=== PATIENT | female | born 1930 | race Caucasian/White ===

== ENCOUNTER 2017-09-10 11:52 | Emergency (ER) | payer MEDICARE ==
[2017-09-10] MEDS ORDERED: Morphine Sulfate 2 MG/ML SYRINGE ONE (12:47)
[2017-09-10 13:06] LABS: Bilirubin Negative (Negative); Blood, Urine Negative (Negative); Glucose, Urine (Dipstick) Negative (Negative); Ketone, Urine Negative (Negative); Nitrite Negative (Negative); Protein, Urine (Dipstick) Negative (Neg-Trace); Urobilinogen 0.2 mg/dL (0.2-1.0)
[2017-09-10 13:12] LABS: #Basophils 0.2 thou/uL (0.0-0.2); #Eosinphils 0.3 thou/uL (0.0-0.7); #Lymphocytes 2.6 thou/uL (1.20-3.40); #Monocytes 0.8 thou/uL (0.11-0.59); #Neutrophils 6.1 thou/uL (1.40-6.50); %Basophils 1.6 % (0.0-1.0); %Eosinophils 3.2 % (0.0-10.0); %Lymphocytes 25.9 % (21.0-51.0); %Monocytes 8.2 % (0.0-10.0); Hematocrit 42.8 % (36.0-47.0)
[2017-09-10 13:20] LABS: Lactic Acid - Sepsis 2.3 mmol/L (0.5-2.2)
[2017-09-10 13:22] LABS: Bacteria/HPF 4+ HPF (None Seen); RBC/HPF 0-3 HPF (0-3); Squamous Epithelial 0-3 HPF (0-3)
[2017-09-10 13:24] LABS: ALT (SGPT) 31 U/L (8-55); AST (SGOT) 36 U/L (5-34); Alkaline Phosphatase 95 U/L (40-150); Anion Gap 17 mmol/L (10-20); BUN (Urea Nitrogen) 27 mg/dL (9.8-20.1); Bilirubin, Total 0.8 mg/dL (0.2-1.2); Calc. Creatinine Clearance 0 mL/min (70-130); Calcium 9.5 mg/dL (7.8-10.44); Carbon Dioxide 19 mmol/L (23-31); Chloride 106 mmol/L (98-107); Estimated GFR-MDRD 42; Globulin 4.5 g/dL (2.4-3.5); Lipase 24 U/L (8-78); Protein, Total 8.4 g/dL (6.0-8.3)
[2017-09-10] MEDS ORDERED: cefTRIAXone\\ROCEPHIN 1 GM VIAL ONE (14:15)
--- NOTE | 2017-09-10 14:20 | CT ---
CT ABDOMEN AND PELVIS WITHOUT CONTRAST: HISTORY: Right flank pain. TECHNIQUE: Multiple axial tomograms obtained through the abdomen and pelvis without IV enhancement. FINDINGS: The lung bases are clear. The liver, spleen, and pancreas are unremarkable. The adrenal glands are normal. There is no evidence of hydronephrosis. There is no evidence of a urinary tract calculus. The uret ers are normal in caliber. There are two adjacent cysts arising from the superior pole of the left kidney, each measuring appro ximately 1.5 cm. There is a 2 cm cyst, posterior mid right kidney. The aorta is calcified but of normal caliber. Small bowel loops appear of normal caliber. There is questionable mural thickening in the cecum. A mucosal lesion at the cecum is not excluded on this study. There is diverticulosis of the left colon and sigmoid colon. No definite evidence o f diverticulitis. The uterus is deviated to the left and appears unremarkable. Degenerative changes in the spine are prominent. IMPRESSION: 1. No evidence of urinary tract calculus or obstruction. 2. Renal cystic lesions, as described above. 3. Left colon and sigmoid diverticulosis without definite evidence of diverticulitis by CT. 4. Question mural thickening in the cecum. This may relate to nondistention; however, suggestive e lective colonoscopy or barium enema. POS: [facility]
[2017-09-10 15:11] LABS: Lactic Acid - Sepsis 2.1 mmol/L (0.5-2.2)
== END 2017-09-10 16:16 | disposition home or self-care (01) ==
LOC: SCSER 11:52
DX: N39.0 Urinary tract infection, site not specified (principal); E11.9 Type 2 diabetes mellitus without complications; E78.5 Hyperlipidemia, unspecified; I10 Essential (primary) hypertension; Z79.899 Other long term (current) drug therapy
CPT/HCPCS: 36415; 74176; 80053; 81003; 81015; 83605; 83690; 85025; 87040; 87077; 87086; 87186; 96361; 96365; 96372; J0696; J1956; J2270

== ENCOUNTER 2018-07-11 15:51 | Observation (INO) | payer MEDICARE ==
[2018-07-11] MEDS ORDERED: Dextrose 50% Abboject 50 ML SYRINGE SLOW IVP PRN (20:05)
[2018-07-11] MEDS ORDERED: Insulin Regular 300 UNITS/3 ML VIAL SC PRN (20:05)
[2018-07-11] MEDS ORDERED: Dextrose 5% in Water 1,000 ML IV PRN (20:05)
[2018-07-11] MEDS ORDERED: traMADol HCl 50 MG TAB PO PRN (20:05)
[2018-07-11] MEDS ORDERED: Acetaminophen 500 MG TAB PO SCH (20:15)
[2018-07-11] MEDS ORDERED: Gabapentin 100 MG CAP PO SCH (21:00)
[2018-07-11 22:28] VITALS: BMI 28.7
[2018-07-11] MEDS ORDERED: Gabapentin 300 MG CAP PO SCH (23:00)
[2018-07-11] MEDS ORDERED: Amlodipine 5 MG TAB PO SCH (23:00)
--- NOTE | 2018-07-11 23:24 | HP ---
DATE OF ADMISSION: 07/11/2018 ADMITTING PHYSICIAN: Murphy Eason MD HISTORY OF PRESENT ILLNESS: Ms. Bautista is an 87-year-old female, who reports that she was ambulating to her bedside commode and when she went to reach down to sit on her bedside commode, she fell onto the floor landing on the coffee table. She was able to get herself up and ambulate back to her bed. She woke up this morning having pain in her anterior chest. She was taken to [facility] in [place], where a CT scan identified a sternal fracture. She was then transferred t [facility] Emergency Department for a higher level of care. She reports that pain is well controll ed unless she is moving. She denies chest pain, syncope, shortness of breath, or any other pain. PAST MEDICAL HISTORY: 1. Diabetes type 2. 2. Hyperlipidemia. 3. High cholesterol. 4. Hypertension. PAST SURGICAL HISTORY: 1. Hernia repair x2. 2. Cholecystectomy. 3. Hysterectomy. 4. Left foot surgery. SOCIAL HISTORY: The patient lives alone in her home, very near to her [id number]. Alcohol, non e. Tobacco, none. Drugs, none. CURRENT MEDICATIONS: 1. Lisinopril 20 mg once daily. 2. Pravastatin 20 mg once daily. 3. Amlodipine 5 mg once daily. ALLERGIES: 1. CODEINE. 2. PENICILLIN. 3. SULFA. 4. TERRAMYCIN. DIAGNOSTIC IMAGING: CT scan shows nondisplaced upper sternal fracture without complication. LABORATORY STUDIES: CBC: WBC 8.1, RBC 4.02, hemoglobin 12.8, hematocrit 38, platelets 168. Coagula tion: PT 13.2, INR 1. Chemistry: Sodium 142, potassium 3.9, chloride 107, carbon dioxide 24, BUN 2 2, creatinine 1.13, glucose 140. REVIEW OF SYSTEMS: Constitutional: The patient denies chills, fever, recent weight loss, or general ized malaise. HEENT: Denies otorrhea, rhinorrhea, neck pain, or sore throat. Cardiovascular: Juan es chest pain, palpitations, or syncope. Respiratory: Denies cough, wheezing, or shortness of breat h. Gastrointestinal: Denies abdominal pain, constipation, diarrhea, nausea, or vomiting. Genitouri nary: Denies dysuria, hematuria, or frequency. Musculoskeletal: Reports fall. Reports anterior ch est pain. Skin: Denies rashes or skin changes. Neurologic: Denies dizziness, headache, focal weak ness, or sensory changes. Heme/Lymphatic: Denies abnormal bleeding. PHYSICAL EXAMINATION: VITAL SIGNS: Blood pressure 170/91, pulse 79, respirations 16, O2 sat 99%. CONSTITUTIONAL: Elderly female lying in bed in no acute distress, nontoxic appearing. HEENT: Atraumatic, normocephalic. NECK: Without tenderness. Trachea midline. RESPIRATORY: Bilateral breath sounds clear. Chest movement symmetrical. CARDIOVASCULAR: Regular rate and rhythm. Heart sounds normal. ABDOMEN: Soft, nontender, nondistended. PELVIS: Stable. BACK: Normal range of motion. Normal inspection. EXTREMITIES: Moves all extremities well. Sensation intact. Neurovascular intact. NEUROLOGIC: GCS 15. Awake, alert, and oriented x3. SKIN: Warm, dry, and normal in color. ASSESSMENT: 1. An 87-year-old female status post ground-level fall. 2. Sternal fracture. 3. Acute traumatic pain. 4. History of hypertension, present on admission. 5. History of diabetes, present on admission. 6. History of hyperlipidemia, present on admission. PLAN: 1. Admit to surgical floor for pain control. 2. PT, OT evaluation. 3. Diabetic diet. 4. Oral analgesia. 5. SCDs for DVT prophylaxis. 6. Pepcid for gastritis prophylaxis. 7. Extensive discussion had with the patient and [id number] about code status. The patient is adamant she is DNR and reports that she has out of hospital DNR and wishes to continue that within [facility]. Staff nurse present for discussion. 8. Rehabilitation referral. 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 The patient was reviewed with Dr. Eason, who agrees with plan.
[2018-07-11] MEDS: Acetaminophen 325 MG TAB PO SCH (23:47)
[2018-07-12] MEDS: Acetaminophen 325 MG TAB PO SCH ×6 (03:23→23:13)
[2018-07-12 05:44] LABS: Anion Gap 12 mmol/L (10-20); BUN (Urea Nitrogen) 22 mg/dL (9.8-20.1); Calc. Creatinine Clearance 36 mL/min (70-130); Calcium 9.6 mg/dL (7.8-10.44); Carbon Dioxide 24 mmol/L (23-31); Chloride 107 mmol/L (98-107); Estimated GFR-MDRD 46; Glucose 119 mg/dL (83-110); Magnesium 1.5 mg/dL (1.6-2.6); Potassium 3.4 mmol/L (3.5-5.1); Sodium 140 mmol/L (136-145)
[2018-07-12] MEDS ORDERED: Magnesium 2 GM/50 ML 2 GM in Premix Bag 1 BAG IVPB SCH (07:30)
[2018-07-12] MEDS ORDERED: Potassium Chloride 40 MEQ in Premix Bag 1 BAG IVPB SCH (07:30)
[2018-07-12] MEDS ORDERED: Magnesium Sulfate 2 GM, Potassium Chloride 40 MEQ in Sodium Chloride 0.9% 250 ML 250 ML IVPB SCH (08:30)
[2018-07-12] MEDS ORDERED: Non-Formulary Item 1 EACH (Lisinopril [Lisinopril] 40 MG) PO SCH (09:00)
[2018-07-12] MEDS ORDERED: Gabapentin 100 MG CAP PO SCH (09:00)
[2018-07-12] MEDS ORDERED: Pravastatin Sodium 20 MG TAB PO SCH (09:00)
[2018-07-12] MEDS: Lisinopril 20 MG TAB PO SCH (10:45)
[2018-07-12] MEDS: Aspirin 81 mg Enteric Coated Tablet PO SCH (10:45)
[2018-07-12] MEDS: Lactated Ringer's 1,000 ML IV SCH ×2 (10:48→14:10)
[2018-07-12] MEDS: Gabapentin 300 MG CAP PO SCH ×3 (10:48→19:50)
--- NOTE | 2018-07-12 11:21 | PRG ---
DATE OF SERVICE: 07/12/2018 ATTENDING PHYSICIAN: Dr. Codey Romo SUBJECTIVE: Ms. Bautista is an 87-year-old female who sustained a ground level fall 2 nights ago. She was evaluated in [place] yesterday morning and found to have a sternal fracture. She was subse quently transferred to [facility] for higher level of care. She was admitted by Trauma Services for pain management. PHYSICAL EXAMINATION: VITAL SIGNS: Temperature 98.2, pulse 74, respirations 14, O2 sat 96% room air, blood pressure 117/72 . GENERAL: Elderly female sitting up on bed, in no acute distress. HEENT: Atraumatic, normocephalic. CARDIOVASCULAR: Regular rate and rhythm. Heart sounds normal. PULMONARY: Bilateral breath sounds clear. No respiratory distress. ABDOMEN: Soft, nontender, nondistended. EXTREMITIES: Moves all extremities well. NEUROLOGIC: GCS 15. Awake, alert, oriented x3. LABORATORY DATA: Sodium 140, potassium 3.4, chloride 107, carbon dioxide 24, BUN 22, creatinine 1.11 , glucose 119, calcium 9.6, phosphorus 4.0, magnesium 1.5. ASSESSMENT: 1. An 87-year-old female status post ground level fall. 2. Sternal fracture. 3. Acute traumatic pain. 4. History of hypertension, present on admission. 5. History of diabetes, present on admission. 6. History of hyperlipidemia, present on admission. 7. Hypokalemia. 8. Hypomagnesemia. PLAN: 1. Continue scheduled Tylenol around the clock. 2. Add ibuprofen scheduled. 3. PT, OT evaluation. 4. Correct electrolyte abnormalities and monitor. 5. Case management following for rehab referral. 6. Start chemical DVT prophylaxis. 7. Pepcid for gastritis prophylaxis. The patient was seen and examined with Dr. Romo who agrees with the plan.
[2018-07-12] MEDS: Ibuprofen 200 MG TAB PO SCH ×2 (14:10→21:25)
[2018-07-12] MEDS ORDERED: traMADol HCl 50 MG TAB PO PRN (19:05)
[2018-07-12] MEDS ORDERED: Amlodipine 5 MG TAB PO SCH (21:00)
[2018-07-12] MEDS ORDERED: Heparin 5,000 UNITS/ML VIAL SC SCH (21:00)
[2018-07-12] MEDS ORDERED: Gabapentin 300 MG CAP PO SCH ×2 (21:00)
[2018-07-12] MEDS: Amlodipine 5 MG TAB PO SCH (21:24)
[2018-07-12] MEDS: Simvastatin 5 MG TAB PO SCH (21:24)
[2018-07-12] MEDS: Heparin 5,000 UNITS/ML VIAL SC SCH (21:25)
[2018-07-12] MEDS: traMADol HCl 50 MG TAB PO SCH (23:13)
[2018-07-13] MEDS: Acetaminophen 325 MG TAB PO SCH ×6 (03:28→23:04)
[2018-07-13] MEDS: Lactated Ringer's 1,000 ML IV SCH (04:10)
[2018-07-13 05:29] LABS: Anion Gap 11 mmol/L (10-20); BUN (Urea Nitrogen) 19 mg/dL (9.8-20.1); Calc. Creatinine Clearance 45 mL/min (70-130); Calcium 8.9 mg/dL (7.8-10.44); Carbon Dioxide 25 mmol/L (23-31); Chloride 107 mmol/L (98-107); Estimated GFR-MDRD 60; Glucose 113 mg/dL (83-110); Magnesium 1.9 mg/dL (1.6-2.6); Phosphorus 3.3 mg/dL (2.3-4.7); Potassium 3.8 mmol/L (3.5-5.1); Sodium 139 mmol/L (136-145)
[2018-07-13] MEDS: Ibuprofen 200 MG TAB PO SCH ×2 (06:09→14:47)
[2018-07-13] MEDS: traMADol HCl 50 MG TAB PO SCH ×4 (06:10→23:04)
[2018-07-13] MEDS: Lisinopril 20 MG TAB PO SCH (07:42)
[2018-07-13] MEDS: Gabapentin 300 MG CAP PO SCH ×2 (07:42→11:53)
[2018-07-13] MEDS: Heparin 5,000 UNITS/ML VIAL SC SCH ×3 (07:43→20:02)
[2018-07-13] MEDS: Aspirin 81 mg Enteric Coated Tablet PO SCH (07:43)
[2018-07-13] MEDS: Nitrofurantoin Monohyd/M-Cryst 100 MG CAP PO SCH ×2 (09:45→20:01)
[2018-07-13] MEDS ORDERED: Cyclobenzaprine 10 MG TAB PO PRN (16:09)
[2018-07-13] MEDS ORDERED: Methyl Salicylate/Menthol 85 GM TUBE TOP PRN (16:14)
--- NOTE | 2018-07-13 16:22 | PRG ---
DATE OF SERVICE: 07/13/2018 SUBJECTIVE: This is an 87-year-old female status post mechanical fall, which resulted in a sternal f racture. There were no acute overnight events. This morning, the patient reports that her pain joss ins uncontrolled. The patient states that she has not been using her incentive spirometer secondary to pain. OBJECTIVE: VITAL SIGNS: Temperature 97.4, pulse 73, respirations 16, O2 sat 97% on room air, blood pressure 138 /80. GENERAL: Well-developed elderly female, in no acute distress, resting in bed. PULMONARY: Mildly increased work of breathing. Symmetric chest rise. Approximately 1000 mL on nisha ntive spirometry. CARDIOVASCULAR: Regular rate and rhythm. GASTROINTESTINAL: Abdomen is soft, nontender, nondistended. MUSCULOSKELETAL: Moves all extremities x4. NEUROLOGIC: No focal deficit noted. LABORATORY FINDINGS: Sodium this morning 139, potassium 3.8, chloride 107, carbon dioxide 25, BUN 19 , creatinine 0.9, glucose 113. ASSESSMENT: 1. Status post mechanical fall. 2. Sternal fracture. 3. Acute traumatic pain. 4. History of hypertension. 5. Diabetes. 6. History of hyperlipidemia. 7. Acute kidney injury, improved/resolved. PLAN: Schedule Ultram and add low dose muscle relaxant as well as add sports cream per patient reque st. Continue to encourage incentive spirometry and pulmonary toileting. Continue PT and OT. Follow up with case management regarding patient's disposition to inpatient rehabilitation. Plan of care w as discussed with the patient at bedside. All questions were answered at the time of this dictation. The patient was discussed with trauma attending.
[2018-07-13] MEDS: Simvastatin 5 MG TAB PO SCH (20:01)
[2018-07-13] MEDS: Amlodipine 5 MG TAB PO SCH (20:05)
[2018-07-13] MEDS: Ibuprofen 600 MG TAB PO SCH (23:04)
[2018-07-14] MEDS: Acetaminophen 325 MG TAB PO SCH ×5 (03:14→19:59)
[2018-07-14] MEDS: traMADol HCl 50 MG TAB PO SCH ×3 (06:00→18:27)
[2018-07-14] MEDS: Ibuprofen 600 MG TAB PO SCH ×3 (06:00→21:03)
[2018-07-14] MEDS: Lisinopril 20 MG TAB PO SCH (09:22)
[2018-07-14] MEDS: Gabapentin 300 MG CAP PO SCH ×3 (09:23→18:27)
[2018-07-14] MEDS: Nitrofurantoin Monohyd/M-Cryst 100 MG CAP PO SCH ×2 (09:23→21:01)
[2018-07-14] MEDS: Aspirin 81 mg Enteric Coated Tablet PO SCH (09:23)
[2018-07-14] MEDS: Heparin 5,000 UNITS/ML VIAL SC SCH ×3 (09:23→21:01)
[2018-07-14] MEDS ORDERED: Polyethylene Glycol 3350 17 GM Packet PO SCH (15:45)
--- NOTE | 2018-07-14 15:54 | PRG ---
DATE OF SERVICE: 07/14/2018 SUBJECTIVE: This is an 87-year-old female status post mechanical fall resulting in a sternal fractur e. The patient reports that pain is better controlled after adjustment to pain regimen; however, she still has 10/10 pain at times. She is using her incentive spirometry. OBJECTIVE: VITAL SIGNS: Temperature 98 degrees, pulse 87, respirations 18, O2 sat 99% on room air, blood pressu re 137/83. GENERAL: Elderly-appearing female in no acute distress, sitting on edge of bed. PULMONARY: Normal work of breathing. Symmetric rise. 1250 on incentive spirometry. CARDIOVASCULAR: Regular rate and rhythm. GASTROINTESTINAL: Abdomen is soft, nontender, nondistended. MUSCULOSKELETAL: Moves all extremities x4. NEUROLOGIC: No focal deficit noted. ASSESSMENT: 1. Status post mechanical fall. 2. Sternal fracture. 3. Acute traumatic pain. 4. History of hypertension. 5. History of diabetes. 6. History of hyperlipidemia. 7. Acute kidney injury, resolved. PLAN: Continue pain medication as ordered. Continue PT, OT. Discussed with case management and edmond it insurance approval for inpatient rehabilitation. Plan of care was discussed with the patient at [facility]. All questions were answered at the time of this dictation. The patient was discussed with Wilton Romo.
[2018-07-14] MEDS ORDERED: Mag-Al 1200 mg/1200 mg/30 ML UDCUP PO PRN (18:33)
[2018-07-14] MEDS: Amlodipine 5 MG TAB PO SCH (21:01)
[2018-07-14] MEDS: Simvastatin 5 MG TAB PO SCH (21:03)
[2018-07-14] MEDS: Senokot S 8.6-50 MG TAB PO SCH (21:03)
[2018-07-15] MEDS: Acetaminophen 325 MG TAB PO SCH ×5 (00:17→16:09)
[2018-07-15] MEDS: traMADol HCl 50 MG TAB PO SCH ×3 (00:18→12:04)
[2018-07-15] MEDS: Ibuprofen 600 MG TAB PO SCH ×2 (06:38→14:15)
[2018-07-15] MEDS ORDERED: Polyethylene Glycol 3350 17 GM Packet PO SCH (09:00)
[2018-07-15] MEDS: Lisinopril 20 MG TAB PO SCH (09:24)
[2018-07-15] MEDS: Heparin 5,000 UNITS/ML VIAL SC SCH ×2 (09:25→16:09)
[2018-07-15] MEDS: Aspirin 81 mg Enteric Coated Tablet PO SCH (09:25)
[2018-07-15] MEDS: Senokot S 8.6-50 MG TAB PO SCH (09:25)
[2018-07-15] MEDS: Nitrofurantoin Monohyd/M-Cryst 100 MG CAP PO SCH (09:25)
[2018-07-15] MEDS: Gabapentin 300 MG CAP PO SCH ×2 (09:26→13:15)
[2018-07-15 12:43] VITALS: BP 138/82; TEMP 97.6
--- NOTE | 2018-07-15 12:48 | DIS ---
DATE OF ADMISSION: 07/11/2018 DATE OF DISCHARGE: 07/15/2018 ADMISSION DIAGNOSES: 1. Status post mechanical fall. 2. Sternal fracture. 3. Acute traumatic pain. 4. History of hypertension. 5. History of diabetes. 6. History of hyperlipidemia. 7. Acute kidney injury. 8. Urinary tract infection. DISCHARGE DIAGNOSES: 1. Status post mechanical fall. 2. Sternal fracture. 3. Acute traumatic pain. 4. History of hypertension. 5. History of diabetes. 6. History of hyperlipidemia. 7. Acute kidney injury, resolved. 8. Escherichia coli urinary tract infection. CONSULTANTS: None. PROCEDURES: None. HOSPITAL COURSE: Ms. Ting Bautista is an 87-year-old female who presented to [facility] status post fall that resulted in a sternal fracture. The patient is from [place]. She states that over the course of her hospitalization, her pain improved significantly. She was ambulating in dependently. She was using incentive spirometry. Pain was controlled via p.o. analgesics and she wa s tolerating a general diet. She was medically stable for discharge on 07/15/2018. DISCHARGE DISPOSITION: Home. DISCHARGE CONDITION: Good. PHYSICAL EXAMINATION: VITAL SIGNS: Temperature 97.8, pulse 76, respiration 14, O2 sat 97% on room air, blood pressure 148/ 73. GENERAL: Well-developed elderly appearing female in no acute distress, sitting on the edge of the be d. PULMONARY: Normal work of breathing, symmetric rise. Approximately 6592-1142 mL on incentive spirom etry. CARDIOVASCULAR: Regular rate and rhythm. GASTROINTESTINAL: Abdomen is soft, nontender, nondistended. MUSCULOSKELETAL: Moves all extremities x4. NEUROLOGIC: No focal deficit noted. DISCHARGE INSTRUCTIONS: Discharge instructions were provided to the patient who vocalized her unders tanding prior to discharge. She should continue to use her incentive spirometer. Activity as tolera abiodun. She may resume a general diet or she may continue a general diet. DISCHARGE MEDICATIONS: The patient should resume all home medications at this time. We have increas ed her dose of gabapentin to 300 mg t.i.d., Macrobid 100 mg p.o. b.i.d., #8, Ultram 50 mg p.o. q.6 ho urs p.r.n. for severe pain, #30. FOLLOWUP APPOINTMENTS: The patient should follow up with her primary care provider or trauma service s/Dr. Romo in 2 weeks with a chest x-ray prior to her appointment. She is to follow up with her [facility] provider pfleipa thereafter. This is merely a summary of the patient's hospitalization. For more in depth information, please see her medical record in its entirety.
== END 2018-07-15 16:37 | disposition home or self-care (01) ==
LOC: ERS 15:51 → SJJU 20:05
PROVIDERS: ADMIT Surgery; ATTEND Surgery
DX: S22.20XA Unspecified fracture of sternum, initial encounter for closed fracture (principal); E11.9 Type 2 diabetes mellitus without complications; E78.5 Hyperlipidemia, unspecified; E78.00 Pure hypercholesterolemia, unspecified; I10 Essential (primary) hypertension; G89.4 Chronic pain syndrome; E87.6 Hypokalemia; E83.42 Hypomagnesemia; N17.9 Acute kidney failure, unspecified; N39.0 Urinary tract infection, site not specified; B96.20 Unspecified Escherichia coli [E. coli] as the cause of diseases classified elsewhere; Z79.82 Long term (current) use of aspirin; Z79.899 Other long term (current) drug therapy; Z88.0 Allergy status to penicillin; Z88.2 Allergy status to sulfonamides; Z88.5 Allergy status to narcotic agent; Z88.8 Allergy status to other drugs, medicaments and biological substances; W18.39XA Other fall on same level, initial encounter
CPT/HCPCS: 80048 ×2; 82962 ×5; 83735 ×2; 84100 ×2; 87077; 87086; 87186; 96360; 96361; 97110; 97139 ×7; 99285; G0378 ×3; G8978; G8979; G8980; G8987; G8988; 36415; 36416; G0390; J1644; J3475; J3480; J7050